=== PATIENT | male | born 1990 | race African-American/Black ===

== ENCOUNTER 2023-05-03 12:22 | Emergency (ER) | payer BC ==
[~2023-05-03] VITALS: Ht 193 cm; Wt 82.0 kg
[2023-05-03 12:54] VITALS: BP 128/77; PULSE 94; RESP 15; TEMP 97.9; O2SAT 98
[2023-05-03] MEDS ORDERED: TETRACAINE 0.5% OPHTH DROPS 4ML LEFTEYE NR (13:30)
[2023-05-03] MEDS ORDERED: FLUORESCEIN SODIUM 1MG/STRIP LEFTEYE NR (13:30)
[2023-05-03] MEDS ORDERED: POLY10DR LEFTEYE (14:51)
== END 2023-05-03 15:43 | disposition home or self-care (01) ==
LOC: ER 12:22
DX: T15.92XA Foreign body on external eye, part unspecified, left eye, initial encounter (principal); W26.9XXA Contact with unspecified sharp object(s), initial encounter; Y93.89 Activity, other specified; Y92.89 Other specified places as the place of occurrence of the external cause; Y99.8 Other external cause status
CPT/HCPCS: 65220; 99291; Z7610 ×2